=== PATIENT | male | born 1950 | race African-American/Black ===

== ENCOUNTER 2020-03-18 14:10 | Emergency (ER) | payer MEDICAID ==
[~2020-03-18] VITALS: Ht 177.8 cm; Wt 66.0 kg
[2020-03-18] MEDS ORDERED: SODIUM CHLORIDE 0.9% 1,000 ML IV ONE (19:50)
[2020-03-18 20:25] LABS: BASOPHILS % 1.4 % (0.0-2.0); EOSINOPHILS % 2.7 % (0.0-5.0); HEMATOCRIT. 33.7 % (42.0-52.0); HEMOGLOBIN. 10.3 g/dL (14.0-18.0); LYMPHOCYTES % 49.9 % (20.0-50.0); MEAN CORPUSCULAR HEMOGLOBIN 24.9 pg (28.0-32.0); MEAN CORPUSCULAR VOLUME 80.9 fL (80.0-94.0); MEAN PLATELET VOLUME 8.3 fl (7.4-10.4); MONOCYTES % 8.1 % (2.0-8.0); NEUTROPHILS % 37.9 % (40.0-76.0); PLATELET 127 x1000/uL (130-400); RED BLOOD CELL COUNT 4.16 mill/uL (4.7-6.1); RED CELL DISTRIBUTION WIDTH 19.4 % (11.6-14.6)
[2020-03-18 20:28] LABS: CHLORIDE 107 mEq/L (98-107)
[2020-03-18 21:56] VITALS: BP 159/97
== END 2020-03-18 21:55 | disposition home or self-care (01) ==
LOC: ER 14:10
DX: R42 Dizziness and giddiness (principal); M79.18 Myalgia, other site
CPT/HCPCS: 36415; 71045; 80053; 83880; 84484; 85025; 93005; 96360; 99285; J7030

== ENCOUNTER 2022-04-18 19:44 | Inpatient (IN) | payer MEDICAID ==
[~2022-04-18] VITALS: Ht 170.2 cm; Wt 67.6 kg
[2022-04-18 21:02] LABS: CHLORIDE 99 mEq/L (98-107)
[2022-04-18 21:04] LABS: BASOPHILS % 0.8 % (0.0-2.0); HEMOGLOBIN. 7.5 g/dL (14.0-18.0); LYMPHOCYTES % 16.5 % (20.0-50.0); MEAN CORPUSCULAR HEMOGLOBIN 17.8 pg (28.0-32.0); MEAN CORPUSCULAR VOLUME 62.1 fL (80.0-94.0); MEAN PLATELET VOLUME 8.5 fl (7.4-10.4); MONOCYTES % 9.8 % (2.0-8.0); NEUTROPHILS % 72.9 % (40.0-76.0); PLATELET 177 x1000/uL (130-400); RED BLOOD CELL COUNT 4.19 mill/uL (4.7-6.1); RED CELL DISTRIBUTION WIDTH 19.5 % (11.6-14.6)
[2022-04-18 21:18] LABS: ETHANOL BLOOD < 10 mg/dL
[2022-04-18 21:26] LABS: PLATELET ESTIMATE NORMAL
[2022-04-18] MEDS ORDERED: LEVETIRACETAM 500MG PREMIX 100 ML IV ONE (23:30)
[2022-04-19] MEDS ORDERED: ACETAMINOPHEN 325MG TABLET PO PRN (11:30)
[2022-04-19] MEDS ORDERED: ONDANSETRON HCL 4MG/2ML INJ IV PRN (11:30)
[2022-04-19] MEDS ORDERED: MAGNESIUM/ALUMINUM HYDROXIDE/SIMETHICONE 30ML UDC PO PRN (11:30)
[2022-04-19] MEDS ORDERED: CLONIDINE 0.1MG TABLET PO PRN (11:30)
[2022-04-19] MEDS ORDERED: DOCUSATE SODIUM 100MG CAPSULE PO PRN (11:30)
[2022-04-19] MEDS ORDERED: TRAMADOL 50MG TABLET PO PRN (11:30)
[2022-04-19] MEDS ORDERED: GUAIFENESIN 200MG/10ML SUGAR FREE UDC PO PRN (11:30)
[2022-04-19] MEDS ORDERED: NALOXONE HCL 0.4MG/ML VIAL IV PRN (11:45)
[2022-04-19 12:42] LABS: CLARITY URINE CLEAR (CLEAR); COLOR URINE DARK YELLOW (YELLOW); KETONES URINE TRACE (NEGATIVE); LEUKOCYTE ESTERASE URINE NEGATIVE (NEGATIVE); NITRITE URINE NEGATIVE (NEGATIVE); OCCULT BLOOD URINE NEGATIVE (NEGATIVE); PH URINE 5.5 (4.5-8.0); PROTEIN URINE 1+ (NEGATIVE); SPECIFIC GRAVITY URINE 1.021 (1.005-1.030)
[2022-04-19] MEDS: MULTIVITAMINS,THER W-MINERALS TABLET PO SCH (13:01)
[2022-04-19] MEDS: FERROUS SULFATE 325MG TABLET PO SCH (13:01)
[2022-04-19] MEDS: AMLODIPINE 10MG TABLET PO SCH (13:04)
[2022-04-19 13:22] LABS: *AMPHETAMINES SCREEN URINE NEGATIVE (NEGATIVE); *BARBITURATES SCREEN URINE NEGATIVE (NEGATIVE); *BENZODIAZEPINES SCREEN URINE NEGATIVE (NEGATIVE); *COCAINE SCREEN URINE NEGATIVE (NEGATIVE); CANNABINOID URINE SCREEN NEGATIVE (NEGATIVE); METHADONE URINE SCREEN NEGATIVE (NEGATIVE); OPIATES URINE SCREEN NEGATIVE (NEGATIVE); PHENCYCLIDINE URINE SCREEN NEGATIVE (NEGATIVE)
[2022-04-20] VITALS (11 sets, daily range): BP systolic 111–164; BP diastolic 73–94
[2022-04-20 06:07] LABS: BASOPHILS % 0.9 % (0.0-2.0); EOSINOPHILS % 1.4 % (0.0-5.0); HEMATOCRIT. 25.7 % (42.0-52.0); HEMOGLOBIN. 7.2 g/dL (14.0-18.0); LYMPHOCYTES % 30.7 % (20.0-50.0); MEAN CORPUSCULAR HEMOGLOBIN 17.7 pg (28.0-32.0); MEAN CORPUSCULAR VOLUME 63.6 fL (80.0-94.0); MEAN PLATELET VOLUME 8.5 fl (7.4-10.4); MONOCYTES % 9.6 % (2.0-8.0); NEUTROPHILS % 57.4 % (40.0-76.0); PLATELET 148 x1000/uL (130-400); RED BLOOD CELL COUNT 4.04 mill/uL (4.7-6.1)
[2022-04-20 07:07] LABS: CHLORIDE 101 mEq/L (98-107)
[2022-04-20 07:21] LABS: HDL CHOLESTEROL 64 mg/dL (40-59); LDL CHOLESTEROL 31 mg/dL (5-100)
[2022-04-20] MEDS: FERROUS SULFATE 325MG TABLET PO SCH (08:34)
[2022-04-20] MEDS: MULTIVITAMINS,THER W-MINERALS TABLET PO SCH (08:34)
[2022-04-20] MEDS: AMLODIPINE 10MG TABLET PO SCH (08:36)
[2022-04-20] MEDS ORDERED: NITROGLYCERIN 0.4MG TABLET SL SL PRN (10:15)
[2022-04-20 11:21] LABS: TOTAL IRON BINDING CAPACITY 493 ug/dL (250-450)
[2022-04-20 11:42] LABS: FERRITIN < 5 ng/mL (22-322)
[2022-04-20 13:04] LABS: VITAMIN B12 SERUM 580 pg/mL (211-911)
[2022-04-20 13:18] LABS: FOLIC ACID (FOLATE) SERUM > 20.00 ng/mL (>5.38)
[2022-04-20] MEDS: FLUOXETINE HCL 10 MG CAPSULE PO SCH (14:26)
[2022-04-20] MEDS: PANTOPRAZOLE SODIUM 40 MG/VIAL IV SCH (14:26)
[2022-04-21] VITALS (7 sets, daily range): BP systolic 125–169; BP diastolic 74–87
[2022-04-21 08:27] LABS: HEMATOCRIT 27.1 % (42.0-52.0); HEMOGLOBIN 7.8 g/dL (14.0-18.0); MEAN CORPUSCULAR HEMOGLOBIN 18.8 pg (28.0-32.0); MEAN CORPUSCULAR VOLUME 65.3 fL (80.0-94.0); PLATELET 139 x1000/uL (130-400); RED BLOOD CELL COUNT 4.15 mill/uL (4.7-6.1); RED CELL DISTRIBUTION WIDTH 21.7 % (11.6-14.6)
[2022-04-21 08:34] LABS: INR 1.1; PROTHROMBIN TIME 11.4 sec (9.6-11.0)
[2022-04-21 08:40] LABS: CHLORIDE 104 mEq/L (98-107)
[2022-04-21] MEDS: FLUOXETINE HCL 10 MG CAPSULE PO SCH (09:06)
[2022-04-21] MEDS: AMLODIPINE 10MG TABLET PO SCH (09:06)
[2022-04-21] MEDS: FERROUS SULFATE 325MG TABLET PO SCH (09:06)
[2022-04-21] MEDS: PANTOPRAZOLE SODIUM 40 MG/VIAL IV SCH (09:06)
[2022-04-21] MEDS: MULTIVITAMINS,THER W-MINERALS TABLET PO SCH (09:07)
[2022-04-21] MEDS: THIAMINE HCL 100MG TABLET PO SCH (09:07)
[2022-04-21 12:08] LABS: BASOPHILS % 1.3 % (0.0-2.0); EOSINOPHILS % 2.4 % (0.0-5.0); HEMATOCRIT. 26.1 % (42.0-52.0); HEMOGLOBIN. 7.6 g/dL (14.0-18.0); LYMPHOCYTES % 25.5 % (20.0-50.0); MEAN CORPUSCULAR HEMOGLOBIN 19.1 pg (28.0-32.0); MEAN CORPUSCULAR VOLUME 65.3 fL (80.0-94.0); MEAN PLATELET VOLUME 8.5 fl (7.4-10.4); MONOCYTES % 11.2 % (2.0-8.0); NEUTROPHILS % 59.6 % (40.0-76.0); PLATELET 133 x1000/uL (130-400); RED CELL DISTRIBUTION WIDTH 21.5 % (11.6-14.6)
[2022-04-21] MEDS ORDERED: POTASSIUM CHLORIDE 20MEQ TABLET SR PO NR (12:30)
[2022-04-22] VITALS: BP 118/63
[2022-04-22 04:00] VITALS: BP 112/73
[2022-04-22 08:00] VITALS: BP 108/74
[2022-04-22] MEDS: FERROUS SULFATE 325MG TABLET PO SCH (10:55)
[2022-04-22] MEDS: MULTIVITAMINS,THER W-MINERALS TABLET PO SCH (10:56)
[2022-04-22] MEDS: THIAMINE HCL 100MG TABLET PO SCH (10:56)
[2022-04-22] MEDS: FLUOXETINE HCL 10 MG CAPSULE PO SCH (10:57)
[2022-04-22] MEDS: AMLODIPINE 10MG TABLET PO SCH (10:58)
[2022-04-22] MEDS: PANTOPRAZOLE SODIUM 40 MG/VIAL IV SCH (10:59)
[2022-04-22 12:00] VITALS: BP 159/84
[2022-04-22 16:00] VITALS: BP 140/78
[2022-04-22 20:00] VITALS: BP 127/75
[2022-04-23] VITALS: BP 114/62
[2022-04-23 04:20] VITALS: BP 118/75
[2022-04-23 07:10] LABS: CHLORIDE 99 mEq/L (98-107)
[2022-04-23 07:55] VITALS: BP 121/76
[2022-04-23 08:15] LABS: HEMATOCRIT. 25.7 % (42.0-52.0); HEMOGLOBIN. 7.6 g/dL (14.0-18.0); MEAN CORPUSCULAR HEMOGLOBIN 19.1 pg (28.0-32.0); MEAN CORPUSCULAR VOLUME 65.1 fL (80.0-94.0); MEAN PLATELET VOLUME 8.8 fl (7.4-10.4); PLATELET 137 x1000/uL (130-400); RED BLOOD CELL COUNT 3.95 mill/uL (4.7-6.1); RED CELL DISTRIBUTION WIDTH 22.3 % (11.6-14.6)
[2022-04-23] MEDS: PANTOPRAZOLE SODIUM 40 MG/VIAL IV SCH (08:56)
[2022-04-23] MEDS: FLUOXETINE HCL 10 MG CAPSULE PO SCH (08:57)
[2022-04-23] MEDS: FERROUS SULFATE 325MG TABLET PO SCH (08:57)
[2022-04-23] MEDS: MULTIVITAMINS,THER W-MINERALS TABLET PO SCH (08:57)
[2022-04-23] MEDS: AMLODIPINE 10MG TABLET PO SCH (08:57)
[2022-04-23] MEDS: THIAMINE HCL 100MG TABLET PO SCH (08:57)
[2022-04-23] MEDS ORDERED: AMLO10TA80 PO (13:44)
[2022-04-23] MEDS ORDERED: THIA100T72 PO (13:44)
[2022-04-23] MEDS ORDERED: FERR-63 PO (13:44)
[2022-04-23] MEDS ORDERED: FLUO20CA39 PO (13:44)
[2022-04-23 16:20] VITALS: BP 109/68
[2022-04-24] MEDS ORDERED: FLUOXETINE HCL 20MG CAPSULE PO SCH (09:00)
[2022-04-24 10:09] LABS: HIV SCREEN 4G Non Reactive (Non Reactive)
[2022-04-24 14:24] LABS: PLATELET ESTIMATE NORMAL
== END 2022-04-23 18:30 | disposition home or self-care (01) | DRG 663 ==
LOC: ER 19:44 → 8WST 04-19 01:38 → EDBEDREQSVC 04-19 17:00 → ENRESERV 04-19 18:45 → CANRESERV 04-19 18:45 → ENRESERV 04-19 20:27 → 8WST 04-20 01:09
PROVIDERS: ADMIT Hospitalist; ATTEND Hospitalist
PROC: 30233N1 Transfusion of Nonautologous Red Blood Cells into Peripheral Vein, Percutaneous Approach (ICD-10-PCS; principal; 2022-04-20)
DX: D50.9 Iron deficiency anemia, unspecified (principal); N17.9 Acute kidney failure, unspecified; F32.3 Major depressive disorder, single episode, severe with psychotic features; E87.1 Hypo-osmolality and hyponatremia; E87.6 Hypokalemia; I10 Essential (primary) hypertension; Z20.822 Contact with and (suspected) exposure to COVID-19; F32.A Depression, unspecified; Z86.73 Personal history of transient ischemic attack (TIA), and cerebral infarction without residual deficits; Z87.891 Personal history of nicotine dependence; Z79.899 Other long term (current) drug therapy; Z63.4 Disappearance and death of family member
CPT/HCPCS: 36415; 70551; 80053; 80061; 80305; 80307; 80320; 80329; 81003; 82140; 82270; 82607; 82728; 82746; 82962; 83540; 83550; 84443; 84484; 85025; 85027; 85384; 86592; 86850; 86900; 86920; 87389; 87426; 93005; 93970; 96365; 99285; C9113; J1953; P9016; G0480